=== PATIENT | female | born 1945 | race Two or more races ===

== ENCOUNTER 2016-12-23 08:40 | Inpatient (IN) | payer MEDICARE, MEDICAID ==
[~2016-12-23] VITALS: Ht 157.5 cm; Wt 57.6 kg
[2016-12-23 09:32] VITALS: BP 107/57
[2016-12-23] MEDS ORDERED: ASPIRIN81 MG ORAL (09:58)
[2016-12-23] MEDS ORDERED: AMLODIPINE BES2.5 MG ORAL (09:58)
[2016-12-23] MEDS ORDERED: ULORIC40 MG ORAL (09:58)
[2016-12-23] MEDS ORDERED: ARICEPT5 MG ORAL (09:58)
[2016-12-23] MEDS ORDERED: MULTIVITAMINS1 EAC2 ORAL (09:58)
[2016-12-23] MEDS ORDERED: CELEXA20 MG ORAL (09:58)
[2016-12-23] MEDS ORDERED: FISH OIL CAP1000 MG ORAL (09:58)
[2016-12-23] MEDS ORDERED: CARVEDILOL3.125 MG ORAL (09:58)
[2016-12-23] MEDS ORDERED: Glucagon 1mg Inj IV ONE (10:00)
--- NOTE | 2016-12-23 10:02 | Emergency Room Report ---
History of Present Illness General Chief Complaint: Head, Face, Neck Trauma Source: Patient Present Illness HPI 71-year-old female presents ED for evaluation. Daughter is at bedside. States that patient fell this morning and she found the patient down on the floor this morning. Patient has laceration over right eyebrow. Patient is unable to tell us whether she tripped or had a syncopal episode. Patient has history of dementia. Patient denies any pain. Denies any headaches, blurry vision, nausea or vomiting. Denies chest pain or shortness of breath. Heart rate is in the 40s. No other aggravating or relieving factors. Denies any other associated symptoms Allergies: Coded Allergies: No Known Allergies (Unverified , 12/23/16) Patient History Past Medical History: HTN Past Surgical History: none Pertinent Family History: none Social History: Denies: alcohol use, drug use, smoking Now: No Immunizations: UTD Reviewed Nursing Documentation: PMH: Agreed, PSxH: Agreed Nursing Documentation-PMH Past Medical History: No History, Except For Review of Systems All Other Systems: negative except mentioned in HPI Physical Exam Vital Signs Date Time Temp Pulse Resp B/P Pulse Ox O2 Delivery O2 Flow Rate FiO2 12/23/16 08:55 96.3 44 16 86/52 99 Room Air Sp02 EP Interpretation: reviewed, normal General Appearance: no apparent distress, alert, GCS 15, non-toxic, thin Head: normocephalic, other - 2cm laceration over R eyebrow Eyes: bilateral eye PERRL, bilateral eye normal inspection ENT: hearing grossly normal, normal pharynx, no angioedema, normal voice Neck: full range of motion, supple/symm/no masses Respiratory: chest non-tender, lungs clear, normal breath sounds, speaking full sentences Cardiovascular #1: regular rate, rhythm, no edema Cardiovascular #2: 2+ carotid (R), 2+ carotid (L), 2+ radial (R), 2+ radial (L) , 2+ dorsalis pedis (R), 2+ dorsalis pedis (L) Gastrointestinal: normal bowel sounds, non tender, soft, non-distended, no guarding, no rebound Rectal: deferred Genitourinary: normal inspection, no CVA tenderness Musculoskeletal: back normal, gait/station normal, normal range of motion, non- tender, calf tenderness Neurologic: alert, motor strength/tone normal, sensory intact Psychiatric: other - dementia Reflexes: 3+ bicep (R), 3+ bicep (L), 3+ tricep (R), 3+ tricep (L), 3+ knee (R) , 3+ knee (L) Skin: normal color, no rash, warm/dry, well hydrated Lymphatic: no adenopathy Procedures Laceration/Wound Repair Laceration/Wound Repair : Consent: Emergent Wound Location: head - 2cm laceration above R eyebrow Wound's Depth, Shape: linear Wound Explored: clean Betadine Prep?: Yes Anesthesia: 1% Lidocaine Wound Repaired With: sutures Suture Size/Type: 6:0, proline Layer Closure?: No Sterile Dressing Applied?: Yes Splint Applied?: No Sling Applied?: No Patient Tolerated: Well Complications: None Medical Decision Making Diagnostic Impression: Primary Impression: Head injury Qualified Codes: S09.90XA - Unspecified injury of head, initial encounter Additional Impressions: Syncope Qualified Codes: R55 - Syncope and collapse Laceration ER Course Hospital Course 71-year-old female presents to ED found down on ground, questionable LOC. Head injury noted. Differential diagnoses include: IA/unstable angina, arrythmia, dehydration, CVA/ TIA Clinical course Patient placed on stretcher. on direct care professional. After initial history and physical I ordered labs, EKG, chest x-ray, IVFs, CT Brain labs reviewed- no leukocytosis, hemoglobin/hematocrit ok, electrolytes okay, troponins negative EKG- NSR, no acute ischemic changes Chest x-ray- no acute process, cardiomegaly CT brain-unremarkable Laceration above right eye repaired Case discussed with Dr. Barriga and he agreed to accept the patient to his service for further care and support I. I feel this is a highly complex case requiring extensive working including EKG/Rhythm strip, Xray/CT/US, Blood/urine lab work, repeat exams while in ED, and administration of strong opiates/narcotics for pain control, admission to hospital or close patient follow up. Diagnosis - syncope, head injury, laceration admitted to telemetry in serious condition Labs Test 12/23/16 10:15 12/23/16 12:35 White Blood Count 5.3 K/UL (4.8-10.8) Red Blood Count 2.96 M/UL (4.20-5.40) Hemoglobin 10.1 G/DL (12.0-16.0) Hematocrit 29.1 % (37.0-47.0) Mean Corpuscular Volume 98 FL (80-99) Mean Corpuscular Hemoglobin 34.3 PG (27.0-31.0) Mean Corpuscular Hemoglobin Concent 34.9 G/DL (32.0-36.0) Red Cell Distribution Width 11.0 % (11.6-14.8) Platelet Count 127 K/UL (150-450) Mean Platelet Volume 7.2 FL (6.5-10.1) Neutrophils (%) (Auto) 62.9 % (45.0-75.0) Lymphocytes (%) (Auto) 28.4 % (20.0-45.0) Monocytes (%) (Auto) 6.3 % (1.0-10.0) Eosinophils (%) (Auto) 1.1 % (0.0-3.0) Basophils (%) (Auto) 1.2 % (0.0-2.0) Sodium Level 142 mEQ/L (135-145) Potassium Level 4.7 mEQ/L (3.4-4.9) Chloride Level 103 mEQ/L (98-107) Carbon Dioxide Level 24 mEQ/L (20-30) Anion Gap 15 (5-15) Blood Urea Nitrogen 16 mg/dL (7-23) Creatinine 1.2 mg/dL (0.5-0.9) Estimat Glomerular Filtration Rate mL/min (>60) Glucose Level 92 mg/dL (74-106) Calcium Level 9.0 mg/dL (8.6-10.2) Total Bilirubin 1.0 mg/dL (0.0-1.2) Aspartate Amino Transf (AST/SGOT) 43 U/L (5-40) Alanine Aminotransferase (ALT/SGPT) 40 U/L (3-33) Alkaline Phosphatase 36 U/L (35-104) Total Creatine Kinase 73 U/L (26-140) Creatine Kinase MB < 1.5 ng/mL (< 3.8) Creatine Kinase MB Relative Index Troponin I < 0.30 ng/mL (<=0.30) Pro-B-Type Natriuretic Peptide 210 pg/mL (0-125) Total Protein 6.2 g/dL (6.6-8.7) Albumin 4.0 g/dL (3.5-5.2) Globulin 2.2 g/dL Albumin/Globulin Ratio 1.8 (1.0-2.7) Urine Color Pale yellow Urine Appearance Clear Urine pH 7 (4.5-8.0) Urine Specific [place] 1.005 (1.005-1.035) Urine Protein Negative (NEGATIVE) Urine Glucose (UA) Negative (NEGATIVE) Urine Ketones Negative (NEGATIVE) Urine Occult Blood Negative (NEGATIVE) Urine Nitrite Positive (NEGATIVE) Urine Bilirubin Negative (NEGATIVE) Urine Urobilinogen Normal MG/DL (0.0-1.0) Urine Leukocyte Esterase 1+ (NEGATIVE) Urine RBC 0-2 /HPF (0 - 2) Urine WBC 2-4 /HPF (0 - 2) Urine Squamous Epithelial Cells Few /LPF (NONE/OCC) Urine Bacteria Moderate /HPF (NONE) EKG Diagnostic Results Rate: bradycardiac Rhythm: NSR ST Segments: no acute changes ASA given to the pt in ED: No Rhythm Strip Diag. Results EP Interpretation: yes Rhythm: NSR, no PVC's, no ectopy Chest X-Ray Diagnostic Results EP Interpretation: No Findings: no consolidation, no effusion, no pneumothorax, no acute cardiopulmonary disease, other - cardiomegaly Number of Views: 1 CT/MRI/US Diagnostic Results CT/MRI/US Diagnostic Results : Imaging Test Ordered: CT head Impression no acute process Last Vital Signs Date Time Temp Pulse Resp B/P Pulse Ox O2 Delivery O2 Flow Rate FiO2 12/23/16 09:32 96.3 44 16 107/57 99 Room Air Status: improved Disposition: ADMITTED INPATIENT Condition: Serious Referrals: NON PHYSICIAN (PCP) YUSUF VALLADARES M.D. Dec 23, 2016 10:01
--- NOTE | 2016-12-23 10:29 | Diagnostic Imaging Report ---
Indication: SYNCOPE Technique: spiral acquisitions obtained through the brain. Angled axial and coronal 5 x 5 mm slices were reconstructed. No IV contrast utilized. Radiation dose was minimized using automated exposure control Total dose length product 1290 mGycm. CTDIvol(s) 70 mGy Comparison: none FINDINGS: No acute hemorrhage or edema. No mass effect or midline shift. There is age-related enlargement of the ventricles and extra axial CSF spaces. There is periventricular deep white matter ischemic change. Normal rivera-white differentiation. Visualized orbits are unremarkable. Visualized sinuses are unremarkable. Intact calvarium. IMPRESSION: Chronic and age-related changes. Negative for acute intracranial bleed or mass effect The CT scanner at [facility] is accredited by the [employer] and the scans are performed using protocols designed to limit radiation exposure to as low as reasonably achievable to attain images of sufficient resolution adequate for diagnostic evaluation
[2016-12-23 10:44] LABS: BASOPHILS % (AUTO) 1.2 % (0.0-2.0); EOSINOPHILS % (AUTO) 1.1 % (0.0-3.0); LYMPHOCYTES % (AUTO) 28.4 % (20.0-45.0); MEAN CORPUSCULAR HEMOGLOBIN 34.3 PG (27.0-31.0); MEAN CORPUSCULAR HGB CONC 34.9 G/DL (32.0-36.0); MEAN CORPUSCULAR VOLUME 98 FL (80-99); MEAN PLATELET VOLUME 7.2 FL (6.5-10.1); MONOCYTES % (AUTO) 6.3 % (1.0-10.0); NEUTROPHILS % (AUTO) 62.9 % (45.0-75.0); PLATELET COUNT 127 K/UL (150-450); RED BLOOD COUNT 2.96 M/UL (4.20-5.40); WHITE BLOOD COUNT 5.3 K/UL (4.8-10.8)
[2016-12-23 10:56] LABS: ALANINE AMINOTRANSFERASE 40 U/L (3-33); ALBUMIN/GLOBULIN RATIO 1.8 (1.0-2.7); ANION GAP 15 (5-15); ASPARTATE AMINO TRANSFERASE 43 U/L (5-40); CARBON DIOXIDE 24 mEQ/L (20-30); CHLORIDE 103 mEQ/L (98-107); CREATININE 1.2 mg/dL (0.5-0.9); HEMOLYSIS 71; POTASSIUM 4.7 mEQ/L (3.4-4.9); SODIUM 142 mEQ/L (135-145); TOTAL PROTEIN 6.2 g/dL (6.6-8.7); TROPONIN I < 0.30 ng/mL (<=0.30)
[2016-12-23 11:15] LABS: CKMB < 1.5 ng/mL (< 3.8)
--- NOTE | 2016-12-23 11:42 | Diagnostic Imaging Report ---
Indication: SYNCOPE Technique: One view of the chest Comparison: none Findings: The heart is mildly enlarged. Lungs and pleural spaces are clear. The aorta is tortuous and calcified. There are degenerative changes of the right shoulder Impression: No acute process. Findings as noted, including mild cardiomegaly
[2016-12-23 12:26] VITALS: BP 113/70
[2016-12-23] MEDS ORDERED: Ketorolac 30mg Inj IV PRN (12:30)
[2016-12-23] MEDS ORDERED: Nitroglycerin Subl 0.4mg tab (Bottle Of 25) SL PRN (12:30)
[2016-12-23] MEDS ORDERED: Miralax 17gm pkt ORAL PRN (12:30)
[2016-12-23] MEDS ORDERED: DuoNeb 0.5-3(2.5)mg/3ml neb HHN PRN (12:30)
[2016-12-23] MEDS ORDERED: Morphine Sulfate 2mg/ml Inj IVP PRN (12:30)
[2016-12-23] MEDS ORDERED: Diltiazem 25mg/5ml IV PRN (12:30)
[2016-12-23] MEDS ORDERED: Enalaprilat 2.5mg/2ml Inj IV PRN (12:30)
[2016-12-23 12:52] LABS: APPEARANCE,URINE CLEAR; KETONES,URINE NEGATIVE (NEGATIVE); LEUKOCYTE ESTERASE ,URINE 1+ (NEGATIVE); NITRITE,URINE POSITIVE (NEGATIVE); PH,URINE 7 (4.5-8.0); PROTEIN,URINE NEGATIVE (NEGATIVE); UROBILINOGEN,URINE NORMAL MG/DL (0.0-1.0)
[2016-12-23 13:00] LABS: BACTERIA,URINE MODERATE /HPF; RBC,URINE 0-2 /HPF (0 - 2); SQUAMOUS EPITHELIAL CELL,UR FEW /LPF (NONE/OCC)
--- NOTE | 2016-12-23 13:20 | Consultation ---
History of Present Illness General Date patient seen: Dec 23, 2016 Chief Complaint: Head, Face, Neck Trauma Referring physician: Dr. Napoles Reason for Consultation: inpatient management Present Illness HPI 71-year-old female with hx of mild dementia, HTN presented to [facility] ED with CC of fall this morning and her daughter found the patient down on the floor this morning. Patient has laceration over right eyebrow. Patient is unable to tell us whether she tripped or had a syncopal episode. Patient denies any pain. Denies any headaches, blurry vision, nausea or vomiting. Denies chest pain or shortness of breath. Patients heart rate was in the 40s. No other aggravating or relieving factors. Allergies: Coded Allergies: No Known Allergies (Unverified , 12/23/16) Medication History Scheduled Amlodipine Besylate* (Amlodipine Besylate*), Unknown Dose ORAL BID, (Reported) Aspirin* (Aspirin*), 81 MG ORAL DAILY, (Reported) Carvedilol* (Carvedilol*), Unknown Dose ORAL EVERY 12 HOURS, (Reported) Citalopram Hydrobromide* (Celexa*), Unknown Dose ORAL DAILY, (Reported) Donepezil Hcl* (Aricept*), Unknown Dose ORAL DAILY, (Reported) Febuxostat (Uloric), Unknown Dose ORAL BEDTIME, (Reported) Fish Oil (Fish Oil 1,000 mg Capsule), 1,000 MG ORAL DAILY, (Reported) Multivitamins* (Multivitamins*), 1 TAB ORAL DAILY, (Reported) Patient History Healthcare decision maker Resuscitation status Advanced Directive on File Past Medical/Surgical History Past Medical/Surgical History: (1) Syncope (2) Depression (3) Dementia Review of Systems All Other Systems: negative except mentioned in HPI Physical Exam Lines, tubes and drains: peripheral HEENT: normocephalic, atraumatic Neck: non-tender, normal alignment Respiratory/Chest: chest wall non-tender, lungs clear Cardiovascular/Chest: normal peripheral pulses, normal rate, bradycardia Abdomen: normal bowel sounds, non tender Genitourinary/Rectal: normal genital exam Skin Exam: normal pigmentation Last 24 Hour Vital Signs Date Time Temp Pulse Resp B/P Pulse Ox O2 Delivery O2 Flow Rate FiO2 12/23/16 12:50 96.0 54 16 113/70 99 Room Air 12/23/16 12:26 96.0 54 16 113/70 99 Room Air 12/23/16 09:32 96.3 44 16 107/57 99 Room Air 12/23/16 08:55 96.3 44 16 86/52 99 Room Air Laboratory Tests Test 12/23/16 10:15 12/23/16 12:35 White Blood Count 5.3 K/UL (4.8-10.8) Red Blood Count 2.96 M/UL (4.20-5.40) L Hemoglobin 10.1 G/DL (12.0-16.0) L Hematocrit 29.1 % (37.0-47.0) L Mean Corpuscular Volume 98 FL (80-99) Mean Corpuscular Hemoglobin 34.3 PG (27.0-31.0) H Mean Corpuscular Hemoglobin Concent 34.9 G/DL (32.0-36.0) Red Cell Distribution Width 11.0 % (11.6-14.8) L Platelet Count 127 K/UL (150-450) L Mean Platelet Volume 7.2 FL (6.5-10.1) Neutrophils (%) (Auto) 62.9 % (45.0-75.0) Lymphocytes (%) (Auto) 28.4 % (20.0-45.0) Monocytes (%) (Auto) 6.3 % (1.0-10.0) Eosinophils (%) (Auto) 1.1 % (0.0-3.0) Basophils (%) (Auto) 1.2 % (0.0-2.0) Sodium Level 142 mEQ/L (135-145) Potassium Level 4.7 mEQ/L (3.4-4.9) Chloride Level 103 mEQ/L (98-107) Carbon Dioxide Level 24 mEQ/L (20-30) Anion Gap 15 (5-15) Blood Urea Nitrogen 16 mg/dL (7-23) Creatinine 1.2 mg/dL (0.5-0.9) H Estimat Glomerular Filtration Rate mL/min (>60) Glucose Level 92 mg/dL (74-106) Calcium Level 9.0 mg/dL (8.6-10.2) Total Bilirubin 1.0 mg/dL (0.0-1.2) Aspartate Amino Transf (AST/SGOT) 43 U/L (5-40) H Alanine Aminotransferase (ALT/SGPT) 40 U/L (3-33) H Alkaline Phosphatase 36 U/L (35-104) Total Creatine Kinase 73 U/L (26-140) Creatine Kinase MB < 1.5 ng/mL (< 3.8) Creatine Kinase MB Relative Index Troponin I < 0.30 ng/mL (<=0.30) Pro-B-Type Natriuretic Peptide 210 pg/mL (0-125) H Total Protein 6.2 g/dL (6.6-8.7) L Albumin 4.0 g/dL (3.5-5.2) Globulin 2.2 g/dL Albumin/Globulin Ratio 1.8 (1.0-2.7) Urine Color Pale yellow Urine Appearance Clear Urine pH 7 (4.5-8.0) Urine Specific [place] 1.005 (1.005-1.035) Urine Protein Negative (NEGATIVE) Urine Glucose (UA) Negative (NEGATIVE) Urine Ketones Negative (NEGATIVE) Urine Occult Blood Negative (NEGATIVE) Urine Nitrite Positive (NEGATIVE) H Urine Bilirubin Negative (NEGATIVE) Urine Urobilinogen Normal MG/DL (0.0-1.0) Urine Leukocyte Esterase 1+ (NEGATIVE) H Urine RBC 0-2 /HPF (0 - 2) Urine WBC 2-4 /HPF (0 - 2) Urine Squamous Epithelial Cells Few /LPF (NONE/OCC) Urine Bacteria Moderate /HPF (NONE) H Height (Feet): 5 Height (Inches): 2.00 Weight (Pounds): 127 Medications Current Medications Medications (Trade) Dose Ordered Sig/Shanelle Route PRN Reason Start Time Stop Time Status Last Admin Dose Admin Acetaminophen (Tylenol) 650 mg Q4H PRN ORAL FEVER 12/23/16 12:30 01/22/17 12:29 UNV Albuterol/ Ipratropium (DuoNeb 0.5-3(2.5)mg/3ml) 3 ml EVERY 4 HOURS PRN HHN Shortness of Breath 12/23/16 12:30 12/28/16 12:29 UNV Aspirin (ASA) 162 mg DAILY ORAL 12/24/16 09:00 01/23/17 08:59 UNV Citalopram Hydrobromide (celeXA) 10 mg DAILY ORAL 12/24/16 09:00 01/23/17 08:59 UNV Diltiazem HCl (Cardizem) 10 mg EVERY HOUR PRN IV heart rate more than 120, 12/23/16 12:30 01/22/17 12:29 UNV Enalaprilat (Vasotec) 2.5 mg EVERY 6 HOURS PRN IV sbp more than 160 12/23/16 12:30 01/22/17 12:29 UNV Heparin Sodium (Porcine) (Heparin 5000 units/ml) 5,000 units EVERY 12 HOURS SUBQ 12/23/16 21:00 01/22/17 20:59 UNV Ketorolac Tromethamine (Toradol 30mg) 30 mg Q6HR PRN IV moderate pain ( 4-6) 12/23/16 12:30 12/28/16 12:29 UNV Morphine Sulfate (Morphine Sulfate) 2 mg EVERY 4 HOURS PRN IVP severe Pain (Pain Scale 7-10) 12/23/16 12:30 12/30/16 12:29 UNV Nitroglycerin (Ntg) 0.4 mg Every 5 Minutes PRN SL Prn Chest Pain 12/23/16 12:30 01/22/17 12:29 UNV Ondansetron HCl (Zofran) 4 mg Q6H PRN IVP Nausea & Vomiting 12/23/16 12:30 01/22/17 12:29 UNV Polyethylene Glycol (Miralax) 17 gm DAILYPRN PRN ORAL Constipation 12/23/16 12:30 01/22/17 12:29 UNV Temazepam (Restoril) 15 mg HSPRN PRN ORAL Insomnia 12/23/16 12:30 12/30/16 12:29 UNV Assessment/Plan Problem List: (1) Acute encephalopathy ICD Codes: G93.40 - Encephalopathy, unspecified SNOMED: 3432906 (2) Bradycardia ICD Codes: R00.1 - Bradycardia, unspecified SNOMED: 94083641 (3) Anemia ICD Codes: D64.9 - Anemia, unspecified SNOMED: 744447087 (4) Depression ICD Codes: F32.9 - Major depressive disorder, single episode, unspecified SNOMED: 06958037 Qualifiers: (5) Dementia ICD Codes: F03.90 - Unspecified dementia without behavioral disturbance SNOMED: 54918556 Qualifiers: Assessment/Plan telemetry monitoring echo hold beta blockers anemia w/u, including iron studies cardio evaluation, CLAUDIA Courtney Dec 23, 2016 13:20
[2016-12-23 13:26] VITALS: BP 110/74
[2016-12-23 14:16] LABS: INR 1.1 (0.9-1.1); PROTHROMBIN TIME 10.9 SEC (9.30-11.50)
[2016-12-23 14:41] LABS: RETICULOCYTE COUNT 1.3 % (0.0-2.0)
[2016-12-23 15:02] LABS: ERYTHROCYTE SEDIMENTATION RATE 22 MM/HR (0-30); PATH BLOOD SMEAR/OMC SENT TO PATHOLOGIST
[2016-12-23 16:00] VITALS: BP 120/74
--- NOTE | 2016-12-23 16:11 | History & Physical ---
History and Physical History & Physicial Dictated for Int Med-Dr Barriga no. [id number]. BRANDON QUINONES Dec 23, 2016 16:11
--- NOTE | 2016-12-23 18:29 | Cardiology Progress Note ---
Assessment/Plan Assessment/Plan The patient is seen and examined, full consult note will be dictated. Objective Last 24 Hour Vital Signs Date Time Temp Pulse Resp B/P Pulse Ox O2 Delivery O2 Flow Rate FiO2 12/23/16 16:00 97.2 54 20 120/74 96 Room Air 12/23/16 13:40 48 12/23/16 13:26 96.0 56 17 110/74 99 Room Air 12/23/16 12:50 96.0 54 16 113/70 99 Room Air 12/23/16 12:26 96.0 54 16 113/70 99 Room Air 12/23/16 09:32 96.3 44 16 107/57 99 Room Air 12/23/16 08:55 96.3 44 16 86/52 99 Room Air Laboratory Tests Test 12/23/16 10:15 12/23/16 12:35 White Blood Count 5.3 K/UL (4.8-10.8) Red Blood Count 2.96 M/UL (4.20-5.40) L Hemoglobin 10.1 G/DL (12.0-16.0) L Hematocrit 29.1 % (37.0-47.0) L Mean Corpuscular Volume 98 FL (80-99) Mean Corpuscular Hemoglobin 34.3 PG (27.0-31.0) H Mean Corpuscular Hemoglobin Concent 34.9 G/DL (32.0-36.0) Red Cell Distribution Width 11.0 % (11.6-14.8) L Platelet Count 127 K/UL (150-450) L Mean Platelet Volume 7.2 FL (6.5-10.1) Neutrophils (%) (Auto) 62.9 % (45.0-75.0) Lymphocytes (%) (Auto) 28.4 % (20.0-45.0) Monocytes (%) (Auto) 6.3 % (1.0-10.0) Eosinophils (%) (Auto) 1.1 % (0.0-3.0) Basophils (%) (Auto) 1.2 % (0.0-2.0) Erythrocyte Sedimentation Rate 22 MM/HR (0-30) Reticulocyte Count 1.3 % (0.0-2.0) Prothrombin Time 10.9 SEC (9.30-11.50) Prothromb Time International Ratio 1.1 (0.9-1.1) Activated Partial Thromboplast Time 26 SEC (23-33) Sodium Level 142 mEQ/L (135-145) Potassium Level 4.7 mEQ/L (3.4-4.9) Chloride Level 103 mEQ/L (98-107) Carbon Dioxide Level 24 mEQ/L (20-30) Anion Gap 15 (5-15) Blood Urea Nitrogen 16 mg/dL (7-23) Creatinine 1.2 mg/dL (0.5-0.9) H Estimat Glomerular Filtration Rate mL/min (>60) Glucose Level 92 mg/dL (74-106) Calcium Level 9.0 mg/dL (8.6-10.2) Total Bilirubin 1.0 mg/dL (0.0-1.2) Aspartate Amino Transf (AST/SGOT) 43 U/L (5-40) H Alanine Aminotransferase (ALT/SGPT) 40 U/L (3-33) H Alkaline Phosphatase 36 U/L (35-104) Total Creatine Kinase 73 U/L (26-140) Creatine Kinase MB < 1.5 ng/mL (< 3.8) Creatine Kinase MB Relative Index Troponin I < 0.30 ng/mL (<=0.30) Pro-B-Type Natriuretic Peptide 210 pg/mL (0-125) H Total Protein 6.2 g/dL (6.6-8.7) L Albumin 4.0 g/dL (3.5-5.2) Globulin 2.2 g/dL Albumin/Globulin Ratio 1.8 (1.0-2.7) Urine Color Pale yellow Urine Appearance Clear Urine pH 7 (4.5-8.0) Urine Specific [place] 1.005 (1.005-1.035) Urine Protein Negative (NEGATIVE) Urine Glucose (UA) Negative (NEGATIVE) Urine Ketones Negative (NEGATIVE) Urine Occult Blood Negative (NEGATIVE) Urine Nitrite Positive (NEGATIVE) H Urine Bilirubin Negative (NEGATIVE) Urine Urobilinogen Normal MG/DL (0.0-1.0) Urine Leukocyte Esterase 1+ (NEGATIVE) H Urine RBC 0-2 /HPF (0 - 2) Urine WBC 2-4 /HPF (0 - 2) Urine Squamous Epithelial Cells Few /LPF (NONE/OCC) Urine Bacteria Moderate /HPF (NONE) H RORO ARITA Dec 23, 2016 18:29
[2016-12-23 20:00] VITALS: BP 105/57
[2016-12-23] MEDS: Heparin 5000 units/ml inj SUBQ SCH (21:00)
--- NOTE | 2016-12-23 22:18 | History and Physical Report ---
DATE OF ADMISSION: 12/23/2016 CHIEF COMPLAINT: The patient is a 71-year-old female, presents with chief complaint of syncopal episode. HISTORY OF PRESENT ILLNESS: The patient lives with a roommate. Much of the history and physical is obtained from the patient's daughter, Sally at the patient's bedside. According to the daughter, the patient lives with her roommate. The patient was found this morning sitting on her bed. There was blood on the bathroom floor as well as the nightstand. Apparently, the patient gone into the restroom and fell striking her right forehead on the nightstand. The patient presented to [facility] emergency room. The patient is admitted for syncopal episode to rule out myocardial infarction versus cerebrovascular accident. PAST MEDICAL HISTORY: Significant for: 1. Alzheimer's dementia. 2. Hypertension. 3. Gout. 4. Major depression. PAST SURGICAL HISTORY: The patient denies. CURRENT MEDICATIONS: 1. Amlodipine 2.5 mg one tablet p.o. twice daily. 2. Aspirin 81 mg one tablet p.o. daily. 3. Carvedilol 3.125 mg one tablet p.o. twice daily. 4. Celexa 20 mg one tablet p.o. daily. 5. Aricept 5 mg one tablet p.o. at bedtime. 6. Uloric 40 mg one tablet p.o. daily. 7. Fish oil 1000 mg one tablet p.o. daily. 8. Multivitamin one tablet p.o. daily. ALLERGIES: No known drug allergies. SOCIAL HISTORY: The patient is a . The patient denies tobacco use, having quit 15 years ago. The patient denies alcohol use. The patient has several grown children of which Marcela, daughter, who is at the bedside. REVIEW OF SYSTEMS: Constitutional: The patient denies weight loss or weight gain. The patient denies fevers or chills. HEENT: The patient denies ear or throat pain. The patient does have a contusion of the right forehead. Chest: The patient denies wheeze or shortness of breath. Abdominal: The patient denies nausea, vomiting, diarrhea, or constipation. Cardiovascular: The patient denies palpitations or chest pain. Genitourinary: The patient denies dysuria or increased frequency of urination. Neuromuscular: The patient denies seizures or generalized weakness. The patient does complain of syncopal episode as above. PHYSICAL EXAMINATION: VITAL SIGNS: Temperature 96.3, respirations 16, pulse 44, and blood pressure 107/57. GENERAL: The patient is a well-developed and well-nourished female, in no apparent distress. HEENT: Eyes are pupils are equal and responsive to light and accommodation. Extraocular movements are intact. NECK: Supple without lymphadenopathy. CHEST: Lungs are clear to auscultation bilaterally without wheezes or rales. CARDIOVASCULAR: Regular rate. S1 and S2 are normal without murmurs, rubs, or gallops. ABDOMEN: Soft, nontender, and nondistended. Positive bowel sounds. No evidence of hepatosplenomegaly. Currently, no rebound or guarding noted. EXTREMITIES: Negative for clubbing, cyanosis, or edema. RECTAL: Refused. GENITAL: Refused. INTEGUMENT: Presence of contusion over the right eye. NEUROLOGIC: Cranial nerves II through XII are grossly intact without focal deficits. Motor strength is 5/5 bilaterally. Deep tendon reflexes 2+ plantar. LABORATORY AND DIAGNOSTIC DATA: Laboratory studies, WBC 5.2, hemoglobin 10.1, hematocrit 29.1, and platelets 127,000. Sodium 142, potassium 4.7, chloride 103, CO2 24, BUN 16, creatinine 1.2, and glucose 92. Troponin less than 0.3. BNP elevated at 210. Urinalysis showed positive nitrite, 1+ leukocyte esterase, and 2 to [address] scan of the brain showed chronic age-related changes, otherwise no acute intracranial hemorrhage or mass effect. ASSESSMENT: This is a 71-year-old female: 1. Syncopal episode. 2. Bradycardia. 3. Urinary tract infection. 4. Laceration of the right forehead. 5. Contusion of the right forehead. 6. Hypertension. 7. Alzheimer's dementia. 8. Gout. 9. Major depression. TREATMENT: 1. Syncope. This may be secondary to bradycardia versus acute myocardial infarction versus acute cerebrovascular accident. A Cardiology consultation was obtained with Dr. Mandujano. A Neurology consultation has been obtained with Dr. Santoro. 2. Urinary tract infection. The patient has been placed empirically on intravenous Levaquin. A urine culture is pending. 3. Laceration of the right forehead/contusion of the right forehead. This has been evaluated emergency room. The laceration was repaired in the emergency room. 4. Hypertension. Antihypertensive medication will be held at this point, secondary to bradycardia. We will follow recommendation of Cardiology, Dr. Mandujano. 5. Alzheimer's dementia. Continue Aricept as above. 6. Gout. Continue Uloric as above. 7. Major depression. Continue Celexa as above. Alex Napoles M.D. DR: ELENA JOB#: [id number] CC:
[2016-12-24] VITALS: BP 106/55
[2016-12-24 04:00] VITALS: BP 96/55
[2016-12-24 07:31] LABS: BASOPHILS % (AUTO) 0.7 % (0.0-2.0); EOSINOPHILS % (AUTO) 1.2 % (0.0-3.0); LYMPHOCYTES % (AUTO) 32.5 % (20.0-45.0); MEAN CORPUSCULAR HEMOGLOBIN 34.2 PG (27.0-31.0); MEAN CORPUSCULAR HGB CONC 35.6 G/DL (32.0-36.0); MEAN CORPUSCULAR VOLUME 96 FL (80-99); MEAN PLATELET VOLUME 7.7 FL (6.5-10.1); MONOCYTES % (AUTO) 8.4 % (1.0-10.0); NEUTROPHILS % (AUTO) 57.2 % (45.0-75.0); PLATELET COUNT 131 K/UL (150-450); RED CELL DISTRIBUTION WIDTH 10.6 % (11.6-14.8); WHITE BLOOD COUNT 5.3 K/UL (4.8-10.8)
[2016-12-24 07:47] LABS: INR 1.1 (0.9-1.1); PROTHROMBIN TIME 11.6 SEC (9.30-11.50)
[2016-12-24 07:53] LABS: ANION GAP 13 (5-15); CARBON DIOXIDE 23 mEQ/L (20-30); CHLORIDE 107 mEQ/L (98-107); CREATININE 1.2 mg/dL (0.5-0.9); HEMOLYSIS 3; POTASSIUM 3.8 mEQ/L (3.4-4.9); SODIUM 143 mEQ/L (135-145)
[2016-12-24 07:58] VITALS: BP 98/50
[2016-12-24 08:02] LABS: HEMOLYSIS 9; IRON 86 ug/dL (37-145); LACTATE DEHYDROGENASE 190 U/L (135-230); TOTAL IRON BINDING CAPACITY 220 ug/dL (250-400)
[2016-12-24 08:06] LABS: CHOLESTEROL 95 mg/dL (< 200); CHOLESTEROL/HDL RATIO 2.2 (3.3-4.4); CRP QUANT < 0.3 mg/dL (< 0.5); HEMOLYSIS 6; LDL CHOLESTEROL (CALC.) 34 mg/dL (60-99)
[2016-12-24 08:08] LABS: TROPONIN I < 0.30 ng/mL (<=0.30)
[2016-12-24] MEDS: Heparin 5000 units/ml inj SUBQ SCH ×2 (09:00→20:29)
[2016-12-24] MEDS: Aspirin Baby 81mg ORAL SCH (09:02)
[2016-12-24] MEDS: Citalopram 20mg Tab ORAL SCH (09:02)
--- NOTE | 2016-12-24 11:06 | Diagnostic Imaging Report ---
APPROVED REPORT CPT Code: 20393 Vascular Symptoms Syncope Doppler Spectral Velocity Analysis RightLeft BILATERAL: CCA/BULB - Imaging reveals irregular, minimal plaque in both carotid bulbs. arteries. The Doppler spectral flow analysis is within normal limits throughout the internal and external carotid arteries. VERTEBRALS - Imaging reveals both vertebral arteries to be patent, without evidence of stenosis or steal.
[2016-12-24 11:21] VITALS: BP 98/56
--- NOTE | 2016-12-24 12:50 | Pulmonology Progress Note ---
Assessment/Plan Problems: (1) Acute encephalopathy (2) Bradycardia (3) Anemia (4) Depression (5) Dementia Assessment/Plan improving heart rate slightly better check echo doppler of carotid artery negative Subjective Interval Events: heart rate slightly better than yesterday Allergies: Coded Allergies: No Known Allergies (Unverified , 12/23/16) Objective Last 24 Hour Vital Signs Date Time Temp Pulse Resp B/P Pulse Ox O2 Delivery O2 Flow Rate FiO2 12/24/16 11:21 96.4 53 18 98/56 99 Room Air 12/24/16 08:05 52 12/24/16 08:00 46 12/24/16 08:00 62 12/24/16 07:58 96.4 59 18 98/50 96 Room Air 12/24/16 07:55 59 12/24/16 07:43 71 16 Room Air 12/24/16 04:00 47 12/24/16 04:00 97.0 47 20 96/55 95 Room Air 12/24/16 00:10 60 12/24/16 00:05 58 12/24/16 00:00 49 12/24/16 00:00 98.8 63 20 106/55 98 Room Air 57 12/24/16 00:00 57 12/23/16 23:12 63 14 Room Air 12/23/16 22:35 60 65 12/23/16 20:00 54 12/23/16 20:00 97.8 63 20 105/57 93 Room Air 12/23/16 20:00 50 12/23/16 16:00 97.2 54 20 120/74 96 Room Air 12/23/16 13:40 48 12/23/16 13:26 96.0 56 17 110/74 99 Room Air 12/23/16 12:50 96.0 54 16 113/70 99 Room Air Intake and Output 12/23/16 12/24/16 19:00 07:00 Intake Total 520 ml Balance 520 ml Intake Oral 320 ml IV Total 200 ml # Voids 1 3 General Appearance: WD/WN HEENT: normocephalic, atraumatic Respiratory/Chest: chest wall non-tender, lungs clear Breasts: no masses Cardiovascular: normal peripheral pulses, normal rate Abdomen: normal bowel sounds Genitourinary: normal external genitalia Microbiology Date/Time Source Procedure Growth Status 12/23/16 12:35 Urine,Clean Catch Urine Culture - Preliminary Gram Negative Bacillus 1 Resulted Laboratory Tests 12/24/16 04:50: White Blood Count 5.3, Red Blood Count 3.00L, Hemoglobin 10.3L, Hematocrit 28.9L , Mean Corpuscular Volume 96, Mean Corpuscular Hemoglobin 34.2H, Mean Corpuscular Hemoglobin Concent 35.6, Red Cell Distribution Width 10.6L, Platelet Count 131L, Mean Platelet Volume 7.7, Neutrophils (%) (Auto) 57.2, Lymphocytes (%) (Auto) 32.5, Monocytes (%) (Auto) 8.4, Eosinophils (%) (Auto) 1.2, Basophils (%) (Auto) 0.7, Prothrombin Time 11.6H, Prothromb Time International Ratio 1.1, Activated Partial Thromboplast Time 27, Sodium Level 143, Potassium Level 3.8, Chloride Level 107, Carbon Dioxide Level 23, Anion Gap 13, Blood Urea Nitrogen 15, Creatinine 1.2H, Estimat Glomerular Filtration Rate , Glucose Level 80, Calcium Level 9.0, Iron Level 86, Total Iron Binding Capacity 220L, Percent Iron Saturation 39, Unsaturated Iron Binding 134, Lactate Dehydrogenase 190, Troponin I < 0.30, C-Reactive Protein, Quantitative < 0.3, Triglycerides Level 87, Cholesterol Level 95, LDL Cholesterol 34L, HDL Cholesterol 44, Cholesterol/HDL Ratio 2.2L, Carcinoembryonic Antigen 1.3, Vitamin B12 Level 979H, Folate [Pending], Thyroid Stimulating Hormone (TSH) 1.680 Current Medications Medications (Trade) Dose Ordered Sig/Shanelle Route PRN Reason Start Time Stop Time Status Last Admin Dose Admin Acetaminophen (Tylenol) 650 mg Q4H PRN ORAL FEVER 12/23/16 12:30 01/22/17 12:29 Albuterol/ Ipratropium (DuoNeb 0.5-3(2.5)mg/3ml) 3 ml Q4H PRN HHN Shortness of Breath 12/23/16 12:30 12/28/16 12:29 Aspirin (ASA) 162 mg DAILY ORAL 12/24/16 09:00 01/23/17 08:59 12/24/16 09:02 Citalopram Hydrobromide (celeXA) 10 mg DAILY ORAL 12/24/16 09:00 01/23/17 08:59 12/24/16 09:02 Diltiazem HCl (Cardizem) 10 mg Q1H PRN IV heart rate more than 120, 12/23/16 12:30 01/22/17 12:29 Enalaprilat (Vasotec) 2.5 mg Q6H PRN IV sbp more than 160 12/23/16 12:30 01/22/17 12:29 Heparin Sodium (Porcine) 5000 units 5,000 units EVERY 12 HOURS SUBQ 12/23/16 21:00 01/22/17 20:59 Ketorolac Tromethamine (Toradol 30mg) 30 mg Q6H PRN IV moderate pain ( 4-6) 12/23/16 12:30 12/28/16 12:29 Levofloxacin (Levaquin) 50 ml @ 50 mls/hr Q24H IVPB 12/24/16 18:00 12/31/16 17:59 Morphine Sulfate (Morphine Sulfate) 2 mg EVERY 4 HOURS PRN IVP severe Pain (Pain Scale 7-10) 12/23/16 12:30 12/30/16 12:29 Nitroglycerin (Ntg) 0.4 mg Q5MIN X 3 DOSES PRN SL Prn Chest Pain 12/23/16 12:30 01/22/17 12:29 Ondansetron HCl (Zofran) 4 mg Q6H PRN IVP Nausea & Vomiting 12/23/16 12:30 01/22/17 12:29 Polyethylene Glycol (Miralax) 17 gm DAILYPRN PRN ORAL Constipation 12/23/16 12:30 01/22/17 12:29 Temazepam (Restoril) 15 mg HSPRN PRN ORAL Insomnia 12/23/16 12:30 12/30/16 12:29 12/24/16 01:41 CLAUDIA CHIN Dec 24, 2016 12:50
[2016-12-24 16:00] VITALS: BP 102/63
--- NOTE | 2016-12-24 17:04 | Internal Med Progress Note ---
Subjective Date of Service: Dec 24, 2016 Physician Name Brandon Quinones Attending Physician Hiram Barriga MD Current Medications Medications (Trade) Dose Ordered Sig/Shanelle Route PRN Reason Start Time Stop Time Status Last Admin Dose Admin Acetaminophen (Tylenol) 650 mg Q4H PRN ORAL FEVER 12/23/16 12:30 01/22/17 12:29 Albuterol/ Ipratropium (DuoNeb 0.5-3(2.5)mg/3ml) 3 ml Q4H PRN HHN Shortness of Breath 12/23/16 12:30 12/28/16 12:29 Aspirin (ASA) 162 mg DAILY ORAL 12/24/16 09:00 01/23/17 08:59 12/24/16 09:02 Citalopram Hydrobromide (celeXA) 10 mg DAILY ORAL 12/24/16 09:00 01/23/17 08:59 12/24/16 09:02 Diltiazem HCl (Cardizem) 10 mg Q1H PRN IV heart rate more than 120, 12/23/16 12:30 01/22/17 12:29 Enalaprilat (Vasotec) 2.5 mg Q6H PRN IV sbp more than 160 12/23/16 12:30 01/22/17 12:29 Heparin Sodium (Porcine) 5000 units 5,000 units EVERY 12 HOURS SUBQ 12/23/16 21:00 01/22/17 20:59 Ketorolac Tromethamine (Toradol 30mg) 30 mg Q6H PRN IV moderate pain ( 4-6) 12/23/16 12:30 12/28/16 12:29 Levofloxacin (Levaquin) 50 ml @ 50 mls/hr Q24H IVPB 12/24/16 18:00 12/31/16 17:59 Morphine Sulfate (Morphine Sulfate) 2 mg EVERY 4 HOURS PRN IVP severe Pain (Pain Scale 7-10) 12/23/16 12:30 12/30/16 12:29 Nitroglycerin (Ntg) 0.4 mg Q5MIN X 3 DOSES PRN SL Prn Chest Pain 12/23/16 12:30 01/22/17 12:29 Ondansetron HCl (Zofran) 4 mg Q6H PRN IVP Nausea & Vomiting 12/23/16 12:30 01/22/17 12:29 Polyethylene Glycol (Miralax) 17 gm DAILYPRN PRN ORAL Constipation 12/23/16 12:30 01/22/17 12:29 Temazepam (Restoril) 15 mg HSPRN PRN ORAL Insomnia 12/23/16 12:30 12/30/16 12:29 12/24/16 01:41 Allergies: Coded Allergies: No Known Allergies (Unverified , 12/23/16) ROS Limited/Unobtainable: Yes Subjective 71 YO F admitted with syncope and fall injury. Now UTI. Cover for Int Med-Dr Barriga. Non verbal. Objective Last Vital Signs Date Time Temp Pulse Resp B/P Pulse Ox O2 Delivery O2 Flow Rate FiO2 12/24/16 16:00 98.1 64 18 102/63 99 Room Air General Appearance: WD/WN, no apparent distress, alert EENT: PERRL/EOMI, normal ENT inspection Neck: non-tender, normal alignment, supple Cardiovascular: normal peripheral pulses, normal rate, regular rhythm, no gallop/murmur, no JVD Respiratory/Chest: chest wall non-tender, lungs clear, normal breath sounds, no respiratory distress, no accessory muscle use Abdomen: normal bowel sounds, non tender, soft, no organomegaly, no mass Extremities: normal range of motion 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, no motor/sensory deficits Laboratory Tests Test 12/24/16 04:50 White Blood Count 5.3 K/UL (4.8-10.8) Red Blood Count 3.00 M/UL (4.20-5.40) L Hemoglobin 10.3 G/DL (12.0-16.0) L Hematocrit 28.9 % (37.0-47.0) L Mean Corpuscular Volume 96 FL (80-99) Mean Corpuscular Hemoglobin 34.2 PG (27.0-31.0) H Mean Corpuscular Hemoglobin Concent 35.6 G/DL (32.0-36.0) Red Cell Distribution Width 10.6 % (11.6-14.8) L Platelet Count 131 K/UL (150-450) L Mean Platelet Volume 7.7 FL (6.5-10.1) Neutrophils (%) (Auto) 57.2 % (45.0-75.0) Lymphocytes (%) (Auto) 32.5 % (20.0-45.0) Monocytes (%) (Auto) 8.4 % (1.0-10.0) Eosinophils (%) (Auto) 1.2 % (0.0-3.0) Basophils (%) (Auto) 0.7 % (0.0-2.0) Prothrombin Time 11.6 SEC (9.30-11.50) H Prothromb Time International Ratio 1.1 (0.9-1.1) Activated Partial Thromboplast Time 27 SEC (23-33) Sodium Level 143 mEQ/L (135-145) Potassium Level 3.8 mEQ/L (3.4-4.9) Chloride Level 107 mEQ/L (98-107) Carbon Dioxide Level 23 mEQ/L (20-30) Anion Gap 13 (5-15) Blood Urea Nitrogen 15 mg/dL (7-23) Creatinine 1.2 mg/dL (0.5-0.9) H Estimat Glomerular Filtration Rate mL/min (>60) Glucose Level 80 mg/dL (74-106) Calcium Level 9.0 mg/dL (8.6-10.2) Iron Level 86 ug/dL (37-145) Total Iron Binding Capacity 220 ug/dL (250-400) L Percent Iron Saturation 39 % (15-50) Unsaturated Iron Binding 134 ug/dL (112-346) Lactate Dehydrogenase 190 U/L (135-230) Troponin I < 0.30 ng/mL (<=0.30) C-Reactive Protein, Quantitative < 0.3 mg/dL (< 0.5) Triglycerides Level 87 mg/dL (< 150) Cholesterol Level 95 mg/dL (< 200) LDL Cholesterol 34 mg/dL (60-99) L HDL Cholesterol 44 mg/dL (> 60) Cholesterol/HDL Ratio 2.2 (3.3-4.4) L Carcinoembryonic Antigen 1.3 ng/mL Vitamin B12 Level 979 pg/mL (211-946) H Folate Pending Thyroid Stimulating Hormone (TSH) 1.680 uIU/mL (0.300-4.500) Microbiology Date/Time Source Procedure Growth Status 12/23/16 12:35 Urine,Clean Catch Urine Culture - Preliminary Gram Negative Bacillus 1 Resulted Intake and Output 12/23/16 12/24/16 19:00 07:00 Intake Total 520 ml Balance 520 ml Intake Oral 320 ml IV Total 200 ml # Voids 1 3 Assessment/Plan Problem List: (1) Alzheimer's dementia (2) UTI (urinary tract infection) Assessment & Plan: Gram neg андрей. Cont levaquin. Await urine culture ID and sensitivity (3) Laceration of forehead Assessment & Plan: S/P repair in emerg room. (4) Gout (5) Major depression Assessment & Plan: Cont celexa (6) Head injury (7) Syncope Assessment & Plan: ? due to UTI or bradycardia (8) Bradycardia Assessment & Plan: ?antihypertensive med? See cardiology note. Workup in progress. Status: unchanged Assessment/Plan D/W daughter. QUINONES,BRANDON Dec 24, 2016 17:04
[2016-12-24] MEDS ORDERED: Levofloxacin 250mg/D5W 50ml IVPB SCH (18:00)
[2016-12-24 20:00] VITALS: BP 97/62
[2016-12-25] VITALS: BP 110/61
[2016-12-25 04:17] VITALS: BP 109/58
[2016-12-25 07:15] LABS: BASOPHILS % (AUTO) 0.6 % (0.0-2.0); EOSINOPHILS % (AUTO) 1.3 % (0.0-3.0); LYMPHOCYTES % (AUTO) 31.9 % (20.0-45.0); MEAN CORPUSCULAR HEMOGLOBIN 34.7 PG (27.0-31.0); MEAN CORPUSCULAR HGB CONC 35.8 G/DL (32.0-36.0); MEAN CORPUSCULAR VOLUME 97 FL (80-99); MEAN PLATELET VOLUME 7.5 FL (6.5-10.1); MONOCYTES % (AUTO) 9.4 % (1.0-10.0); NEUTROPHILS % (AUTO) 56.8 % (45.0-75.0); PLATELET COUNT 141 K/UL (150-450); RED BLOOD COUNT 2.93 M/UL (4.20-5.40); WHITE BLOOD COUNT 6.8 K/UL (4.8-10.8)
[2016-12-25 07:36] LABS: ANION GAP 15 (5-15); CARBON DIOXIDE 25 mEQ/L (20-30); CHLORIDE 104 mEQ/L (98-107); CREATININE 1.3 mg/dL (0.5-0.9); HEMOLYSIS 5; POTASSIUM 4.9 mEQ/L (3.4-4.9); SODIUM 144 mEQ/L (135-145)
[2016-12-25 08:00] VITALS: BP 122/63
[2016-12-25 08:26] LABS: TROPONIN I < 0.30 ng/mL (<=0.30)
[2016-12-25] MEDS: Aspirin Baby 81mg ORAL SCH (08:54)
[2016-12-25] MEDS: Heparin 5000 units/ml inj SUBQ SCH (08:55)
[2016-12-25] MEDS: Citalopram 20mg Tab ORAL SCH (08:55)
[2016-12-25] MEDS ORDERED: Tubing IV Secondary IV ONE (09:35)
[2016-12-25 11:25] VITALS: BP 117/57
--- NOTE | 2016-12-25 11:50 | Pulmonology Progress Note ---
Assessment/Plan Problems: (1) Acute encephalopathy (2) Bradycardia (3) Anemia (4) Depression (5) Dementia Assessment/Plan improving heart rate slightly better check echo doppler of carotid artery negative pt/pt cardio f/u optimize cardiac meds Subjective ROS Limited/Unobtainable: No Interval Events: walking in hallway, Allergies: Coded Allergies: No Known Allergies (Unverified , 12/23/16) Objective Last 24 Hour Vital Signs Date Time Temp Pulse Resp B/P Pulse Ox O2 Delivery O2 Flow Rate FiO2 12/25/16 11:25 97.2 57 18 117/57 99 Room Air 12/25/16 08:48 57 12/25/16 08:20 58 12/25/16 08:15 79 12/25/16 08:10 58 12/25/16 08:00 96.6 58 18 122/63 100 Room Air 12/25/16 07:05 59 12 Room Air 12/25/16 04:17 98.3 64 17 109/58 95 Room Air 12/25/16 04:00 51 12/25/16 01:20 64 66 69 12/25/16 00:00 56 12/25/16 00:00 97.5 64 18 110/61 95 Room Air 12/24/16 20:00 97.7 66 20 97/62 97 Room Air 12/24/16 20:00 64 12/24/16 20:00 65 12 Room Air 12/24/16 17:00 62 65 65 12/24/16 16:00 98.1 64 18 102/63 99 Room Air 12/24/16 16:00 62 12/24/16 12:00 55 Intake and Output 12/24/16 12/25/16 19:00 07:00 Intake Total 370 ml 300 ml Output Total 350 ml Balance 20 ml 300 ml Intake Oral 370 ml 250 ml IV Total 50 ml Output Urine Total 350 ml # Voids 5 General Appearance: WD/WN HEENT: normocephalic, atraumatic Respiratory/Chest: chest wall non-tender, lungs clear Cardiovascular: normal peripheral pulses, normal rate Abdomen: normal bowel sounds, no organomegaly Extremities: no cyanosis Skin: no rash Neurologic/Psychiatric: civil clerk II-XII grossly normal Microbiology Date/Time Source Procedure Growth Status 12/23/16 12:35 Urine,Clean Catch Urine Culture - Final Escherichia Coli Complete Laboratory Tests 12/24/16 23:30: Stool Occult Blood [Pending] 12/25/16 05:45: White Blood Count 6.8, Red Blood Count 2.93L, Hemoglobin 10.2L, Hematocrit 28.4L , Mean Corpuscular Volume 97, Mean Corpuscular Hemoglobin 34.7H, Mean Corpuscular Hemoglobin Concent 35.8, Red Cell Distribution Width 11.0L, Platelet Count 141L, Mean Platelet Volume 7.5, Neutrophils (%) (Auto) 56.8, Lymphocytes (%) (Auto) 31.9, Monocytes (%) (Auto) 9.4, Eosinophils (%) (Auto) 1.3, Basophils (%) (Auto) 0.6, Sodium Level 144, Potassium Level 4.9, Chloride Level 104, Carbon Dioxide Level 25, Anion Gap 15, Blood Urea Nitrogen 18, Creatinine 1.3H, Estimat Glomerular Filtration Rate , Glucose Level 89, Calcium Level 9.0, Troponin I < 0.30 Current Medications Medications (Trade) Dose Ordered Sig/Shanelle Route PRN Reason Start Time Stop Time Status Last Admin Dose Admin Acetaminophen (Tylenol) 650 mg Q4H PRN ORAL FEVER 12/23/16 12:30 01/22/17 12:29 Albuterol/ Ipratropium (DuoNeb 0.5-3(2.5)mg/3ml) 3 ml Q4H PRN HHN Shortness of Breath 12/23/16 12:30 12/28/16 12:29 Aspirin (ASA) 162 mg DAILY ORAL 12/24/16 09:00 01/23/17 08:59 12/25/16 08:54 Citalopram Hydrobromide (celeXA) 10 mg DAILY ORAL 12/24/16 09:00 01/23/17 08:59 12/25/16 08:55 Diltiazem HCl (Cardizem) 10 mg Q1H PRN IV heart rate more than 120, 12/23/16 12:30 01/22/17 12:29 Enalaprilat (Vasotec) 2.5 mg Q6H PRN IV sbp more than 160 12/23/16 12:30 01/22/17 12:29 Heparin Sodium (Porcine) 5000 units 5,000 units EVERY 12 HOURS SUBQ 12/23/16 21:00 01/22/17 20:59 Ketorolac Tromethamine (Toradol 30mg) 30 mg Q6H PRN IV moderate pain ( 4-6) 12/23/16 12:30 12/28/16 12:29 Levofloxacin (Levaquin) 50 ml @ 50 mls/hr Q24H IVPB 12/24/16 18:00 12/31/16 17:59 12/24/16 18:27 Morphine Sulfate (Morphine Sulfate) 2 mg EVERY 4 HOURS PRN IVP severe Pain (Pain Scale 7-10) 12/23/16 12:30 12/30/16 12:29 Nitroglycerin (Ntg) 0.4 mg Q5MIN X 3 DOSES PRN SL Prn Chest Pain 12/23/16 12:30 01/22/17 12:29 Ondansetron HCl (Zofran) 4 mg Q6H PRN IVP Nausea & Vomiting 12/23/16 12:30 01/22/17 12:29 Polyethylene Glycol (Miralax) 17 gm DAILYPRN PRN ORAL Constipation 12/23/16 12:30 01/22/17 12:29 Temazepam (Restoril) 15 mg HSPRN PRN ORAL Insomnia 12/23/16 12:30 12/30/16 12:29 12/24/16 01:41 CLAUDIA CHIN Dec 25, 2016 11:50
--- NOTE | 2016-12-25 12:45 | Internal Med Progress Note ---
Subjective Date of Service: Dec 25, 2016 Physician Name Alex Quinones Attending Physician Hiram Barriga MD Current Medications Medications (Trade) Dose Ordered Sig/Shanelle Route PRN Reason Start Time Stop Time Status Last Admin Dose Admin Acetaminophen (Tylenol) 650 mg Q4H PRN ORAL FEVER 12/23/16 12:30 01/22/17 12:29 Albuterol/ Ipratropium (DuoNeb 0.5-3(2.5)mg/3ml) 3 ml Q4H PRN HHN Shortness of Breath 12/23/16 12:30 12/28/16 12:29 Aspirin (ASA) 162 mg DAILY ORAL 12/24/16 09:00 01/23/17 08:59 12/25/16 08:54 Citalopram Hydrobromide (celeXA) 10 mg DAILY ORAL 12/24/16 09:00 01/23/17 08:59 12/25/16 08:55 Diltiazem HCl (Cardizem) 10 mg Q1H PRN IV heart rate more than 120, 12/23/16 12:30 01/22/17 12:29 Enalaprilat (Vasotec) 2.5 mg Q6H PRN IV sbp more than 160 12/23/16 12:30 01/22/17 12:29 Heparin Sodium (Porcine) 5000 units 5,000 units EVERY 12 HOURS SUBQ 12/23/16 21:00 01/22/17 20:59 Ketorolac Tromethamine (Toradol 30mg) 30 mg Q6H PRN IV moderate pain ( 4-6) 12/23/16 12:30 12/28/16 12:29 Levofloxacin (Levaquin) 50 ml @ 50 mls/hr Q24H IVPB 12/24/16 18:00 12/31/16 17:59 12/24/16 18:27 Morphine Sulfate (Morphine Sulfate) 2 mg EVERY 4 HOURS PRN IVP severe Pain (Pain Scale 7-10) 12/23/16 12:30 12/30/16 12:29 Nitroglycerin (Ntg) 0.4 mg Q5MIN X 3 DOSES PRN SL Prn Chest Pain 12/23/16 12:30 01/22/17 12:29 Ondansetron HCl (Zofran) 4 mg Q6H PRN IVP Nausea & Vomiting 12/23/16 12:30 01/22/17 12:29 Polyethylene Glycol (Miralax) 17 gm DAILYPRN PRN ORAL Constipation 12/23/16 12:30 01/22/17 12:29 Temazepam (Restoril) 15 mg HSPRN PRN ORAL Insomnia 12/23/16 12:30 12/30/16 12:29 12/24/16 01:41 Allergies: Coded Allergies: No Known Allergies (Unverified , 12/23/16) Subjective 71 YO F admitted with syncope and fall injury. Now UTI. Cover for Int Med-Dr Barriga. Non verbal. Caregiver at bedside. Objective Last Vital Signs Date Time Temp Pulse Resp B/P Pulse Ox O2 Delivery O2 Flow Rate FiO2 12/25/16 11:25 97.2 57 18 117/57 99 Room Air Laboratory Tests Test 12/24/16 23:30 12/25/16 05:45 12/25/16 12:30 Stool Occult Blood Pending White Blood Count 6.8 K/UL (4.8-10.8) Red Blood Count 2.93 M/UL (4.20-5.40) L Hemoglobin 10.2 G/DL (12.0-16.0) L Hematocrit 28.4 % (37.0-47.0) L Mean Corpuscular Volume 97 FL (80-99) Mean Corpuscular Hemoglobin 34.7 PG (27.0-31.0) H Mean Corpuscular Hemoglobin Concent 35.8 G/DL (32.0-36.0) Red Cell Distribution Width 11.0 % (11.6-14.8) L Platelet Count 141 K/UL (150-450) L Mean Platelet Volume 7.5 FL (6.5-10.1) Neutrophils (%) (Auto) 56.8 % (45.0-75.0) Lymphocytes (%) (Auto) 31.9 % (20.0-45.0) Monocytes (%) (Auto) 9.4 % (1.0-10.0) Eosinophils (%) (Auto) 1.3 % (0.0-3.0) Basophils (%) (Auto) 0.6 % (0.0-2.0) Sodium Level 144 mEQ/L (135-145) Potassium Level 4.9 mEQ/L (3.4-4.9) Chloride Level 104 mEQ/L (98-107) Carbon Dioxide Level 25 mEQ/L (20-30) Anion Gap 15 (5-15) Blood Urea Nitrogen 18 mg/dL (7-23) Creatinine 1.3 mg/dL (0.5-0.9) H Estimat Glomerular Filtration Rate mL/min (>60) Glucose Level 89 mg/dL (74-106) Calcium Level 9.0 mg/dL (8.6-10.2) Troponin I < 0.30 ng/mL (<=0.30) Pending Microbiology Date/Time Source Procedure Growth Status 12/23/16 12:35 Urine,Clean Catch Urine Culture - Final Escherichia Coli Complete Intake and Output 12/24/16 12/25/16 19:00 07:00 Intake Total 370 ml 300 ml Output Total 350 ml Balance 20 ml 300 ml Intake Oral 370 ml 250 ml IV Total 50 ml Output Urine Total 350 ml # Voids 5 Objective General Appearance: WD/WN, no apparent distress, alert EENT: PERRL/EOMI, normal ENT inspection Neck: non-tender, normal alignment, supple Cardiovascular: normal peripheral pulses, normal rate, regular rhythm, no gallop/murmur, no JVD Respiratory/Chest: chest wall non-tender, lungs clear, normal breath sounds, no respiratory distress, no accessory muscle use Abdomen: normal bowel sounds, non tender, soft, no organomegaly, no mass Extremities: normal range of motion Neurologic: dumper II-XII grossly normal, no motor/sensory deficits Assessment/Plan Problem List: (1) Alzheimer's dementia (2) UTI (urinary tract infection) Assessment & Plan: E. Coli. Cont levaquin IV (3) Laceration of forehead Assessment & Plan: S/P repair in emerg room. (4) Gout (5) Major depression Assessment & Plan: Cont celexa (6) Head injury (7) Syncope Assessment & Plan: ? due to UTI or bradycardia (8) Bradycardia Assessment & Plan: ?antihypertensive med? See cardiology note. Workup in progress. Status: progressing Assessment/Plan D/W daughter and caregiver. ALEX QUINONES Dec 25, 2016 12:45
[2016-12-25 13:12] LABS: TROPONIN I < 0.30 ng/mL (<=0.30)
[2016-12-25] MEDS ORDERED: LEVAQUIN500 MG ORAL (13:37)
--- NOTE | 2016-12-25 16:16 | Cardiology Progress Note ---
Assessment/Plan Assessment/Plan 1. Syncope, probably due to hypovolemia, BP on arrival to the hospital was low, continue hydration, cardiac work up has been so far negative, will require adjustment of home BP meds. 2. Hx of HTN 3. UTI Subjective Subjective Sinus lima at 55 Objective Last 24 Hour Vital Signs Date Time Temp Pulse Resp B/P Pulse Ox O2 Delivery O2 Flow Rate FiO2 12/25/16 12:06 57 12/25/16 11:25 97.2 57 18 117/57 99 Room Air 12/25/16 08:48 57 12/25/16 08:20 58 12/25/16 08:15 79 12/25/16 08:10 58 12/25/16 08:00 96.6 58 18 122/63 100 Room Air 12/25/16 07:05 59 12 Room Air 12/25/16 04:17 98.3 64 17 109/58 95 Room Air 12/25/16 04:00 51 12/25/16 01:20 64 66 69 12/25/16 00:00 56 12/25/16 00:00 97.5 64 18 110/61 95 Room Air 12/24/16 20:00 97.7 66 20 97/62 97 Room Air 12/24/16 20:00 64 12/24/16 20:00 65 12 Room Air 12/24/16 17:00 62 65 65 Intake and Output 12/24/16 12/25/16 19:00 07:00 Intake Total 370 ml 300 ml Output Total 350 ml Balance 20 ml 300 ml Intake Oral 370 ml 250 ml IV Total 50 ml Output Urine Total 350 ml # Voids 5 2D Echo: LVEF 55-60%, Mod AR, Grade I LVDD, RVSP 22 mmHg Laboratory Tests Test 12/24/16 23:30 12/25/16 05:45 12/25/16 12:30 Stool Occult Blood Negative (NEGATIVE) White Blood Count 6.8 K/UL (4.8-10.8) Red Blood Count 2.93 M/UL (4.20-5.40) L Hemoglobin 10.2 G/DL (12.0-16.0) L Hematocrit 28.4 % (37.0-47.0) L Mean Corpuscular Volume 97 FL (80-99) Mean Corpuscular Hemoglobin 34.7 PG (27.0-31.0) H Mean Corpuscular Hemoglobin Concent 35.8 G/DL (32.0-36.0) Red Cell Distribution Width 11.0 % (11.6-14.8) L Platelet Count 141 K/UL (150-450) L Mean Platelet Volume 7.5 FL (6.5-10.1) Neutrophils (%) (Auto) 56.8 % (45.0-75.0) Lymphocytes (%) (Auto) 31.9 % (20.0-45.0) Monocytes (%) (Auto) 9.4 % (1.0-10.0) Eosinophils (%) (Auto) 1.3 % (0.0-3.0) Basophils (%) (Auto) 0.6 % (0.0-2.0) Sodium Level 144 mEQ/L (135-145) Potassium Level 4.9 mEQ/L (3.4-4.9) Chloride Level 104 mEQ/L (98-107) Carbon Dioxide Level 25 mEQ/L (20-30) Anion Gap 15 (5-15) Blood Urea Nitrogen 18 mg/dL (7-23) Creatinine 1.3 mg/dL (0.5-0.9) H Estimat Glomerular Filtration Rate mL/min (>60) Glucose Level 89 mg/dL (74-106) Calcium Level 9.0 mg/dL (8.6-10.2) Troponin I < 0.30 ng/mL (<=0.30) < 0.30 ng/mL (<=0.30) Microbiology Date/Time Source Procedure Growth Status 12/23/16 12:35 Urine,Clean Catch Urine Culture - Final Escherichia Coli Complete Objective HEENT: Eyes are pupils are equal and responsive to light and accommodation. Extraocular movements are intact. NECK: No JVD, no carotid bruit with carotid upstroke 2+ B/L CHEST: Clear to auscultation bilaterally CARDIOVASCULAR: Regular rate rhythm, normal S1 and S2, no murmurs, rubs or gallops. ABDOMEN: Soft, nontender, and nondistended. Positive bowel sounds.No hepatosplenomegaly, + BS EXTREMITIES: No clubbing, cyanosis, or edema. RORO ARITA Dec 25, 2016 16:16
--- NOTE | 2016-12-25 21:28 | Consultation ---
DATE OF CONSULTATION: 12/23/2016 CARDIOLOGY CONSULTATION: CONSULTING PHYSICIAN: Victor M Mandujano M.D. REFERRING PHYSICIAN: Jessica Lewis M.D. ADDITIONAL REFERRING PHYSICIAN: Alex Napoles M.D. HISTORY OF PRESENT ILLNESS: The patient is a very unfortunate 71-year-old Sinhala- speaking female, who presents to the emergency department for evaluation of possible syncope. Apparently, the patient had sustained an episode of fall on the morning of 12/23/2016 and was found on the floor. She sustained some trauma over the right eyebrow. It is not clear whether the patient tripped and fell or had real syncopal event. The patient also has a history of dementia, which is making the history taking a challenge. The patient at the time of arrival to the emergency department, denies any chest pain or shortness of breath. Her heart rate was in 40s and she was found to be hypotensive at 86/52 mmHg. There is no prior history of coronary artery disease, congestive heart failure, or cardiac arrhythmias. PAST MEDICAL HISTORY: Hypertension, history of gout, history of major depression, and also history of Alzheimer's dementia. PAST SURGICAL HISTORY: None. MEDICATIONS: Current medications at home, amlodipine 2.5 mg p.o. twice daily, aspirin 81 mg p.o. daily, carvedilol 3.125 mg p.o. twice daily, Celexa 20 mg p.o. daily, Aricept 5 mg p.o. daily at bedtime, Uloric 40 mg p.o. daily, fish oil 1000 mg one tablet p.o. daily, and multivitamin one tablet p.o. daily. ALLERGIES: No known drug allergies. FAMILY HISTORY: No premature coronary artery disease in first-degree relatives. SOCIAL HISTORY: The patient denies any history of tobacco, alcohol, or illicit drug use. REVIEW OF SYSTEMS: HEENT: Denies any headache, diplopia, or blurred vision. Constitutional: Denies any fever, chills, or weight loss. She has however generalized weakness. Pulmonary: Denies any cough, hemoptysis, or wheezing. Gastrointestinal: Denies any nausea, vomiting, diarrhea, constipation, abdominal pain, or GI bleed. Genitourinary: Denies any hematuria, dysuria, or incontinence. Neurology: Denies any motor dysfunction, sensory deficits, or altered speech. It does not seem that the patient had seizure activities. PHYSICAL EXAMINATION: VITAL SIGNS: Blood pressure at the time of arrival to the hospital was 86/52, heart rate 44, respirations 16, O2 saturation 99% on room air, and temperature 96.3 degrees Fahrenheit. GENERAL: The patient is a very unfortunate 71-year-old Sinhala female, in no apparent respiratory distress with GCS of 15. HEENT: Normocephalic. There is a 2 cm laceration over the right eyebrow, otherwise pupils are equal, round, and reactive to light and accommodation. Extraocular muscles are intact. NECK: JVP is less than 5 cm. No carotid bruit. Carotid upstrokes are 2+ bilaterally. CVS: Normal S1 and S2. Regular rate and rhythm. Bradycardic. No murmurs, gallops or rubs. PMI is at fourth intercostal space at midclavicular line. LUNGS: Clear to auscultation bilaterally. ABDOMEN: Soft, nontender, and nondistended. No hepatosplenomegaly. Positive bowel sounds. EXTREMITIES: No evidence of edema, clubbing, or cyanosis. LABORATORY FINDINGS: WBC is 5.3, hemoglobin 10.1, hematocrit 29.1, and platelet count 127,000. Sodium is 142, potassium 4.7, chloride 103, bicarbonate 24, BUN 16, creatinine 1.2, glucose 92, and calcium 9.0. Troponin I x2 is negative. Pro-BNP was 210. INR is 1.1. DIAGNOSTIC DATA: A CT of head showed chronic age-related changes. Negative for acute intracranial bleed or mass effect. A 2D echocardiography has shown normal LV systolic function with LVEF of 55% to 60%. Moderate aortic regurgitation. There is grade 1 LV diastolic dysfunction and right ventricular systolic pressure 22 mmHg with moderate pulmonary regurgitation as well. A 12-lead electrocardiogram shows sinus rhythm at a rate of [address] and T-wave abnormalities. ASSESSMENT AND PLAN: The patient is a very unfortunate 71-year-old Sinhala female, who was seen in Cardiology consultation at the request of Dr. Lewis and Dr. Napoles. 1. Possible syncope versus mechanical fall. We will like to give her the benefit of the doubt in obtaining full cardiac workup. The patient's 2D echocardiography has shown normal left ventricle systolic function. We will obtain a carotid artery Duplex. It seems to me that if the patient had suffered from syncope, mixed vasodilator, vasodepressor, and cardioinhibitory component as she was hypotensive and bradycardic together. We would like to maintain hydration and also we will adjust blood pressure medications. 2. Orthostatic vitals will also be done q.8 h. 3. History of hypertension. 4. Alzheimer's dementia. 5. History of gout. I would like to thank, Dr. Lewis and Dr. Napoles for the courtesy of this consultation. Victor M Mandujano M.D. DR: Colton JOB#: [id number] CC:
--- NOTE | 2016-12-27 14:40 | Discharge Summary ---
Discharge Summary Hospital Course Date of Admission Dec 23, 2016 at 10:10 Date of Discharge Dec 25, 2016 at 14:35 Admitting Diagnosis SYNCOPE/fall HPI Yogesh Mendoza is a 71 year old female who was admitted on Dec 23, 2016 at 10:10 for Syncope,Fall Hospital Course dc summary #[id number] Discharge Medications Continued Medications: Amlodipine Besylate* (Amlodipine Besylate*) 2.5 Mg Tablet Unknown Dose ORAL BID, TAB Aspirin* (Aspirin*) 81 Mg Tab.chew 81 MG ORAL DAILY, TAB Carvedilol* (Carvedilol*) 3.125 Mg Tablet Unknown Dose ORAL EVERY 12 HOURS, TAB Citalopram Hydrobromide* (Celexa*) 20 Mg Tablet Unknown Dose ORAL DAILY, TAB Donepezil Hcl* (Aricept*) 5 Mg Tablet Unknown Dose ORAL DAILY, TAB Febuxostat (Uloric) 40 Mg Tablet Unknown Dose ORAL BEDTIME, #30 TAB 0 Refills Fish Oil (Fish Oil 1,000 mg Capsule) 1 Each Capsule 1000 MG ORAL DAILY, CAP Levofloxacin* (Levaquin*) 500 Mg Tablet 500 MG ORAL DAILY for 7 Days, TAB Multivitamins* (Multivitamins*) 1 Each Tablet 1 TAB ORAL DAILY, TAB 0 Refills Discharge Condition Upon Discharge: stable Discharge Disposition Patient was discharged to Home (01) Discharge Diagnoses: Discharge Instructions Discharge Instructions Special Instructions I have been assigned to complete a D/C Summary on this account. I was not involved in the patient management Amanda Wharton NP ([facility]) Dec 27, 2016 14:40
--- NOTE | 2016-12-28 00:18 | Discharge Summary 2 SIG ---
DATE OF ADMISSION: 12/23/2016 DATE OF DISCHARGE: 12/25/2016 REASON FOR ADMISSION: 71-year-old female was brought to the emergency room after daughter found her on the floor in the morning. Daughter was at the bedside. The patient had a laceration over her right eyebrow. The patient was unable to explain either she tripped or had syncopal episode or blackout. The patient has underlying history of Alzheimer dementia, was unable to provide any essential information. The patient denied any pain. The patient denied headache, blurry or double vision, nausea or vomiting. The patient denied chest pain, shortness of breath, palpitation, diaphoresis. The patient was bradycardic with heart rate of 40 and hypotensive with blood pressure 86/52. EKG showed sinus bradycardia. No evidence of arrhythmia, Chest x-ray revealed cardiomegaly, but no acute cardiopulmonary changes. CT of the head was negative for any acute intracranial pathology. Laceration above the right eyebrow was repaired in the emergency room. The patient was admitted to the hospital for further management. ADMITTING DIAGNOSES: 1. Blunt head injury. 2. Status post fall. 3. Possible syncope versus mechanical fall. 4. Laceration right eyebrow, status post repair. 5. Alzheimer's dementia. HOSPITAL STAY: The patient admitted to the floor. Cardiology consult and critical care consult doctors were requested. The patient was on gentle IV hydration. Blood pressure and heart rate were closely monitored. The patient was on telemetry. Bradycardia and hypotension - both resolved. Orthostatic vital signs were checked ; there was no evidence of orthostatic changes. Echocardiogram revealed preserved ejection fraction of 55% to 60% and right ventricular systolic pressure of 22 ; evidence of moderate aortic regurgitation, and moderate pulmonic regurgitation. Hammer Adjuster followed the patient. Carotid duplex scan was essentially negative. Per french edge operator. syncope if real, was a combination of vasodilators, vasodepressor, and cardiac inhibitory effect since patient initially demonstrated hypotension and bradycardia ( both subsequently resolved). Blood pressure medication were adjusted by french edge operator. Fall precautions were maintained. The patient was working with physical and occupational therapists. Urine culture with evidence of E. coli. The patient started on IV Levaquin and discharged home on oral Levaquin. The patient was stable for discharge. DISCHARGE DIAGNOSES: 1. Status post blunt head trauma. 2. Status post fall. 3. Possible syncope. 4. Laceration right eyebrow, status post repair. 5. Urinary tract infection/Escherichia coli. 6. Acute encephalopathy on chronic Alzheimer dementia-resolved. DISCHARGE MEDICATIONS: See medication reconciliation list. DISCHARGE INSTRUCTIONS: The patient discharged home. Followup with the primary medical doctor. Hiram Barriga M.D. I have been assigned to dictate discharge summary on this account and I was not involved in the patient's management. Amanda Wharton ([facility] HospitalRadha N.PNahid DR: Stevie JOB#: [id number] CC: LIOR
--- NOTE | 2016-12-28 09:35 | Cardiology Report ---
APPROVED REPORT EXAM: Two-dimensional and M-mode echocardiogram with Doppler and color Doppler. INDICATION Left Ventricular Function M-Mode DIMENSIONS IVSd1.1 (0.7-1.1cm)Left Atrium (MM)4.0 (1.6-4.0cm) LVDd5.6 (3.5-5.6cm)Aortic Root2.5 (2.0-3.7cm) PWd.8 (0.7-1.1cm)Aortic Cusp Exc.2.1 (1.5-2.0cm) LVDs3.2 (2.5-4.0cm) PWs2.1 cm Technically difficult study due to poor acoustic windows. Study quality precludes accurate assessment of regional wall motion. Normal left ventricular chamber size, systolic function and wall motion. Left ventricular ejection fraction estimated to be 55-60 %. No evidence of ventricular hypertrophy. No evidence of pericardial fat or effusion. All other cardiac chamber sizes are within normal limits. Mild focal aortic valve sclerosis with adequate cusp excursion. Mildly thickened mitral valve leaflets with normal excursion. Mild mitral annulus and aortic root calcification. Pulmonic valve not well visualized. Normal tricuspid valve structure. IVC at normal size with physiologic collapse. A color flow and spectral Doppler study was performed and revealed: Moderate aortic regurgitation. Trace mitral regurgitation. Mitral diastolic velocities suggest reduced left ventricular relaxation (Grade I). Trace tricuspid regurgitation. Tricuspid systolic velocities suggests peak right ventricular systolic pressure of 22 mmHg. Moderate pulmonic regurgitation present.
== END 2016-12-25 14:35 | disposition home or self-care (01) | DRG 604 ==
LOC: EMR 09:42 → 2E 10:10 → EDBEDREQ 10:16 → 2E 12-24 23:15
PROC: 0HQ1XZZ Repair Face Skin, External Approach (ICD-10-PCS; principal; 2016-12-23)
DX: S01.81XA Laceration without foreign body of other part of head, initial encounter (principal); G93.40 Encephalopathy, unspecified; N39.0 Urinary tract infection, site not specified; R00.1 Bradycardia, unspecified; R55 Syncope and collapse; S09.90XA Unspecified injury of head, initial encounter; W19.XXXA Unspecified fall, initial encounter; Y92.002 Bathroom of unspecified non-institutional (private) residence as the place of occurrence of the external cause; I10 Essential (primary) hypertension; F32.9 Major depressive disorder, single episode, unspecified; B96.20 Unspecified Escherichia coli [E. coli] as the cause of diseases classified elsewhere; D64.9 Anemia, unspecified; G30.9 Alzheimer's disease, unspecified; F02.80 Dementia in other diseases classified elsewhere, unspecified severity, without behavioral disturbance, psychotic disturbance, mood disturbance, and anxiety
CPT/HCPCS: 36415; 70450; 71010; 80048; 80053; 80061; 81003; 82270; 82378; 82550; 82553; 82607; 82746; 83540; 83550; 83615; 83880; 84443; 84484; 85025; 85044; 85060; 85610; 85651; 85730; 86140; 87086; 87181; 93005; 93306; 93880; 94664